=== PATIENT | male | born 1985 | race Caucasian/White ===

== ENCOUNTER 2017-02-09 15:46 | Emergency (ER) | payer OTHER ==
[~2017-02-09] VITALS: Ht 182.9 cm; Wt 79.4 kg
[~2017-02-09 15:46] MED LIST: NAPROSYN500 MG PO; NORFLEX100 MG PO; ULTRAM 50MG TAB50 MG PO
[2017-02-09] MEDS ORDERED: PREDNISONE 20 M20 MG PO (17:34)
[2017-02-09 17:43] VITALS: BP 126/94
== END 2017-02-09 17:46 | disposition home or self-care (01) ==
LOC: ER 15:46
DX: G62.9 Polyneuropathy, unspecified (principal); G83.9 Paralytic syndrome, unspecified; F41.9 Anxiety disorder, unspecified; F17.210 Nicotine dependence, cigarettes, uncomplicated; Z88.1 Allergy status to other antibiotic agents